=== PATIENT | male | born 1990 | race African-American/Black ===

== ENCOUNTER 2023-02-18 02:41 | Emergency (ER) | payer BC ==
[~2023-02-18] VITALS: Ht 172.7 cm; Wt 90.3 kg
[2023-02-18] MEDS ORDERED: AMOX-430 PO (03:06)
[2023-02-18] MEDS ORDERED: BENZ-13 PO (03:06)
[2023-02-18] MEDS ORDERED: FLUT16SP16 BNOSTRILS (03:06)
[2023-02-18 03:15] VITALS: O2SAT 98
== END 2023-02-18 03:15 | disposition home or self-care (01) ==
LOC: ER 02:46
DX: J32.9 Chronic sinusitis, unspecified (principal); J40 Bronchitis, not specified as acute or chronic; Z79.2 Long term (current) use of antibiotics; Z79.899 Other long term (current) drug therapy
CPT/HCPCS: A4606; A4663